=== PATIENT | female | born 1995 | race Two or more races ===

== ENCOUNTER 2017-06-05 20:52 | Emergency (ER) | payer OTHER ==
[2017-06-05] MEDS ORDERED: MAG HYDROX/AL HYDROX/SIMETH 30 ML UDCUP PO ONE (21:16)
[2017-06-05] MEDS ORDERED: LIDOCAINE 2% VISCOUS 15 ML UDCUP PO ONE (21:16)
[2017-06-05] MEDS ORDERED: HYOSCYAMINE SULFATE 0.125 MG TAB PO ONE (21:16)
[2017-06-05] MEDS ORDERED: ONDANSETRON 4 MG/2 ML VIAL IVP ONE ×2 (21:27→22:22)
[2017-06-05] MEDS ORDERED: NS 1,000 ML IV ONE (21:32)
[2017-06-05] MEDS ORDERED: fentaNYL 100 MCG/2 ML INJ IVP ONE (21:37)
[2017-06-05 21:42] LABS: PLATELET COUNT 333 10^3/uL (150-400)
--- NOTE | 2017-06-05 21:54 | EDPHY ---
H & P Time Seen by Provider: 06/05/17 21:14 HPI/ROS: CHIEF COMPLAINT: Epigastric pain HISTORY OF PRESENT ILLNESS: 22-year-old female presents to the emergency department reporting that for the last 6 hr she has had severe epigastric discomfort. She has had this pain intermittently over the last several months and reports that her primary care physician is concerned she may have an ulcer. She has not had any imaging studies further evaluation other than being told to take Pepcid. Patient reports she ate colon and eggs earlier today. She also drink alcohol yesterday. No vomiting, no fever. No family history of gallstone disease. No personal history of gallstone disease. No history of pancreatitis. Patient reports that in the past for this pain has come on, she often takes Maalox and Pepcid helps control the discomfort. No fever, chills, chest pain, shortness of breath, palpitations, vomiting, diarrhea, urinary complaints, headache, lightheadedness. REVIEW OF SYSTEMS: Aside from elements discussed in the HPI, a comprehensive 10-point review of systems was reviewed and is negative. PAST MEDICAL HISTORY: Possible gastritis versus ulcer disease SOCIAL HISTORY: Here with her boyfriend. Nonsmoker. VITAL SIGNS Reviewed by me. GENERAL: Pleasant female, complaining of epigastric discomfort. She had 1 bout of emesis on arrival to the emergency department. No blood. HEENT: Atraumatic. Eyes: No icterus, no injection. Mouth: moist mucous membranes. No erythema or lesions. Neck: supple with no adenopathy. LUNGS: Clear to auscultation bilaterally, no wheezes, rhonchi or rales. CARDIAC: Regular rate and rhythm, no rubs, murmurs or gallops. ABDOMEN: Soft, tenderness in epigastrium and right upper quadrant. No guarding or rebound. No right lower quadrant tenderness. BACK: No CVA tenderness. EXTREMITIES: No trauma. No edema. Range of motion is normal throughout. NEURO: Alert and oriented, grossly nonfocal. SKIN: Warm and dry, no rash. PSYCHIATRIC: Normal mentation, no agitation. Smoking Status: Never smoked Constitutional: Initial Vital Signs Temperature (C) 36.7 C 06/05/17 21:10 Heart Rate 98 06/05/17 21:10 Respiratory Rate 18 06/05/17 21:10 Blood Pressure 140/99 H 06/05/17 21:10 O2 Sat (%) 96 06/05/17 21:10 O2 Delivery Mode Room Air Allergies/Adverse Reactions: Penicillins Allergy (Unknown, Verified 06/05/17 21:12) Home Medications: Medication Instructions Recorded Control Pills 06/05/17 Omeprazole 20 mg PO DAILY #14 tablet. 06/05/17 Analilia 06/05/17 Medical Decision Making ED Course/Re-evaluation: Patient had IV placed. She received Zofran after her episode of vomiting. GI cocktail was ordered. This relieved the patient's pain almost completely. Laboratory evaluation demonstrates normal lipase, normal liver function tests, [place] [address]. Bedside ultrasound was performed by myself look the patient's gallbladder. No gallstones were visualized. Patient will be discharged with instructions regarding omeprazole on a daily basis, Maalox or Mylanta as needed to control her discomfort, instructions regarding diet for ulcer and gastritis. She has plans to follow up with the primary care physician tomorrow. Differential Diagnosis: Differential diagnosis of the patient's epigastric pain was considered including but not limited to biliary colic, cholecystitis, peptic ulcer disease , pancreatitis, and gastroenteritis. - Data Points Laboratory Results: Laboratory Results 06/05/17 21:10 06/05/17 21:10 06/05/17 06/05/17 06/05/17 21:10 21:10 21:10 WBC 14.68 10^3/uL H 10^3/uL (3.80-9.50) RBC 4.49 10^6/uL 10^6/uL (4.18-5.33) Hgb 13.5 g/dL g/dL (12.6-16.3) Hct 38.8 % % (38.0-47.0) MCV 86.4 fL fL (81.5-99.8) MCH 30.1 pg pg (27.9-34.1) MCHC 34.8 g/dL g/dL (32.4-36.7) RDW 11.9 % % (11.5-15.2) Plt Count 333 10^3/uL 10^3/uL (150-400) MPV 8.9 fL fL (8.7-11.7) Neut % (Auto) 63.9 % % (39.3-74.2) Lymph % (Auto) 26.0 % % (15.0-45.0) [place] % (Auto) 8.7 % % (4.5-13.0) Eos % (Auto) 0.9 % % (0.6-7.6) Baso % (Auto) 0.2 % L % (0.3-1.7) Nucleat RBC Rel Count 0.0 % % (0.0-0.2) Absolute Neuts (auto) 9.40 10^3/uL H 10^3/uL (1.70-6.50) Absolute Lymphs (auto) 3.81 10^3/uL H 10^3/uL (1.00-3.00) Absolute Monos (auto) 1.27 10^3/uL H 10^3/uL (0.30-0.80) Absolute Eos (auto) 0.13 10^3/uL 10^3/uL (0.03-0.40) Absolute Basos (auto) 0.03 10^3/uL 10^3/uL (0.02-0.10) Absolute Nucleated RBC 0.00 10^3/uL 10^3/uL (0-0.01) Immature Gran % 0.3 % % (0.0-1.1) Immature Gran # 0.04 10^3/uL 10^3/uL (0.00-0.10) Sodium 139 mEq/L mEq/L (135-145) Potassium 3.9 mEq/L mEq/L (3.5-5.2) Chloride 107 mEq/L mEq/L (97-110) Carbon Dioxide 20 mEq/l L mEq/l (22-31) Anion Gap 12 mEq/L mEq/L (8-16) BUN 9 mg/dL mg/dL (7-23) Creatinine 0.7 mg/dL mg/dL (0.6-1.0) Estimated GFR > 60 Glucose 87 mg/dL mg/dL (70-100) Calcium 9.7 mg/dL mg/dL (8.5-10.4) Total Bilirubin 0.4 mg/dL mg/dL (0.1-1.4) Conjugated Bilirubin 0.2 mg/dL mg/dL (0.0-0.5) Unconjugated Bilirubin 0.2 mg/dL mg/dL (0.0-1.1) AST 32 IU/L IU/L (14-46) ALT 34 IU/L IU/L (9-52) Alkaline Phosphatase 76 IU/L IU/L (38-126) Total Protein 7.6 g/dL g/dL (6.3-8.2) Albumin 4.5 g/dL g/dL (3.5-5.0) Lipase 57 IU/L IU/L (23-300) Beta HCG, Qual NEGATIVE Medications Given: Discontinued Medications Al Hydroxide/Mg Hydroxide (Maalox Susp) 30 ml PO ONCE ONE Stop: 06/05/17 21:17 Last Admin: 06/05/17 21:21 Dose: 30 ml Fentanyl (Sublimaze) 50 mcg IVP EDNOW ONE Stop: 06/05/17 21:38 Last Admin: 06/05/17 21:43 Dose: 50 mcg Hyoscyamine Sulfate (Levsin, Hyomax-Sl) 0.25 mg PO ONCE ONE Stop: 06/05/17 21:17 Last Admin: 06/05/17 21:21 Dose: 0.25 mg Sodium Chloride (Ns) 1,000 mls @ 0 mls/hr IV EDNOW ONE; Wide Open PRN Reason: Protocol Stop: 06/05/17 21:33 Last Admin: 06/05/17 21:36 Dose: 1,000 mls Lidocaine (Lidocaine 2% Viscous) 15 ml PO ONCE ONE Stop: 06/05/17 21:17 Last Admin: 06/05/17 21:21 Dose: 15 ml Ondansetron HCl (Zofran) 4 mg IVP EDNOW ONE Stop: 06/05/17 21:28 Last Admin: 06/05/17 21:31 Dose: 4 mg Ondansetron HCl (Zofran Odt 4 Mg Prepack#2) 1 btl TAKEHOME EDNOW ONE Stop: 06/05/17 22:19 Last Admin: 06/05/17 22:25 Dose: 1 btl Ondansetron HCl (Zofran) 4 mg IVP EDNOW ONE Stop: 06/05/17 22:23 Last Admin: 06/05/17 22:25 Dose: 4 mg Departure - Departure Disposition: Home, Routine, Self-Care Clinical Impression: Epigastric pain Condition: Good Instructions: Ondansetron (By mouth), Gastritis (ED), Diet for Stomach Ulcers and Gastritis (ED), Epigastric Pain (ED) Additional Instructions: Please follow up with her primary care physician as soon as possible. I think you need to have a ultrasound and possibly a referral to a flat folding machine operator. In the meantime, begin taking Prilosec (omeprazole) daily. This is available [id number]. You should take it every day for the next 14 days. This may help decrease the number of times that you have this abdominal discomfort. Avoid spicy food, alcohol, caffeine, and fatty food. These may all make your abdominal pain worse. Referrals: NONE *PRIMARY CARE P,. [Primary Care Provider] - As per Instructions Stand Alone Forms: Work Excuse Prescriptions: Omeprazole 20 mg PO DAILY #14 tablet.
[2017-06-05] MEDS ORDERED: ONDANSETRON 4MG PREPACK#2 BTL TAKEHOME ONE (22:18)
[2017-06-05 22:56] VITALS: BP 125/78; PULSE 95; RESP 16; TEMP 98.8; O2SAT 97
== END 2017-06-05 22:53 | disposition home or self-care (01) ==
LOC: CED 20:52
DX: R10.13 Epigastric pain (principal); E86.9 Volume depletion, unspecified
CPT/HCPCS: 80048-PO; 80076-PO; 83690-PO; 84703-PO; 85025-PO; 96374; J2405; J3010

== ENCOUNTER → 2017-06-09 | Outpatient (CLI) | payer OTHER | LOC: CIMAGING 15:10 | PROVIDERS: ATTEND Family Medicine | DX: R10.13 Epigastric pain (principal); R10.2 Pelvic and perineal pain | CPT/HCPCS: 76705-PO ==